=== PATIENT | male | born 1955 ===

== ENCOUNTER 2019-08-09 10:50 | Emergency (ER) | payer BC ==
[2019-08-09 12:18] VITALS: BP 108/78
--- NOTE | 2019-08-09 12:28 | UC ---
Respiratory Complaint HPI - HPI Summary HPI Summary: 64 year old male presents with complaint of productive cough, chest tightness, sinus congestion, pain and pressure, notes a feverish at night and some mid back pain x1 week. He denies chest pain, sob nor RIVERA. No n/v/d. 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 - History of Current Complaint Chief Complaint: UCGeneralIllness Stated Complaint: COUGH, CHEST CONGESTION Time Seen by Provider: 08/09/19 12:16 Hx Obtained From: Patient Onset/Duration: Lasting Days - 7 Pain Intensity: 0 Character: Cough: Productive Associated Signs And Symptoms: Positive: Chills, URI, Nasal Congestion, Sinus Discomfort. Negative: Wheezing, Hemoptysis - Allergies/Home Medications Allergies/Adverse Reactions: Allergies Allergy/AdvReac Type Severity Reaction Status Date / Time No Known Allergies Allergy Verified 09/24/18 14:02 Home Medications: Home Medications Levothyroxine TAB* [Synthroid 125 MCG TAB*] 125 mcg PO DAILY 08/09/19 [History Confirmed 08/09/19] PMH/Surg Hx/FS Hx/Imm Hx Previously Healthy: Yes Other Cardiovascular History: denies Other Respiratory History: denies - Surgical History Surgical History: Yes Surgery Procedure, Year, and Place: HERNIA REPAIR X 2 - Family History Known Family History: Negative: Cardiac Disease, Hypertension, Diabetes - Social History Occupation: Employed Full-time - construction Alcohol Use: None Substance Use Type: None Smoking Status (MU): Former Smoker When Did the Patient Quit Smoking/Using Tobacco: 1998 Review of Systems All Other Systems Reviewed And Are Negative: Yes Constitutional: Positive: Chills Skin: Negative: Rash Eyes: Positive: Negative ENT: Positive: Nasal Discharge, Sinus Congestion, Sinus Pain/Tenderness Respiratory: Positive: Cough - productive, especially at night. Negative: Shortness Of Breath Cardiovascular: Positive: Negative Gastrointestinal: Positive: Negative Genitourinary: Positive: Negative Motor: Positive: Negative Neurovascular: Positive: Negative Musculoskeletal: Positive: Negative Neurological: Positive: Negative Psychological: Positive: Negative Is Patient Immunocompromised?: No Physical Exam Triage Information Reviewed: Yes Appearance: Well-Appearing, No Pain Distress, Well-Nourished Vital Signs: Initial Vital Signs Temp 98.2 F 08/09/19 12:15 Pulse 72 08/09/19 12:15 Resp 16 12/15/19 12:15 BP 108/78 08/09/19 12:15 Pulse Ox 99 08/09/19 12:15 Vital Signs Reviewed: Yes Eye Exam: Normal ENT: Positive: Pharynx normal, Nasal congestion, TMs normal, Sinus tenderness, Uvula midline Neck: Positive: Supple, Nontender, No Lymphadenopathy Respiratory: Positive: Lungs clear, Normal breath sounds. Negative: Crackles, Rhonchi, Wheezing Cardiovascular: Positive: RRR, No Murmur, Pulses Normal, Brisk Capillary Refill Abdomen Description: Positive: Nontender, Soft Musculoskeletal Exam: Normal Neurological Exam: Normal Psychological Exam: Normal Skin Exam: Normal Diagnostics - Radiology No standard instances Radiology Interpretation Completed By: Radiologist Summary of Radiographic Findings: Operations Technician: Tiago Silver Daniel, ( [id number]) Radial Saw Operator: MEGHAN (NUANCE) Report Date: 08/09/2019 12:32: 00 Report Status: Final Start of Report Content Patient Name: NARGIS LÓPEZ Moy Medical Record#: [id number] Ordering Physician: Chapo Cramer MD Acct.#: [id number] : 1955 Age: 64 Sex: M Location: [facility] Exam Date: 08/09/191216 ADM Status: REG ER Order Information: CHEST PA LAT 2 [facility] Accession Number: [id number] CPT: 41494 HISTORY : cough, fever COMPARISONS: None relevant available at the time of dictation. VIEWS: 4: Frontal dual-energy and lateral views of the chest. FINDINGS: CARDIOMEDIASTINAL SILHOUETTE: The cardiomediastinal silhouette is normal. GERALDO: The geraldo are normal. PLEURA: The costophrenic angles are sharp. No pleural abnormalities are noted. LUNG PARENCHYMA: The lungs are clear. ABDOMEN: The upper abdomen is clear. There is no subphrenic gas. BONES AND SOFT TISSUES: No bone or soft tissue abnormalities are noted. OTHER: None. IMPRESSION: NO ACTIVE CARDIOPULMONARY DISEASE. <Electronically signed by Tiago Silver MD in OV> 08/09/191227 Dictated By: Tiago Silver MD Dictated Date/Time: 08/09/191227 Transcribed Date/Time: 08/09/191227 Copy to: CC:Mina Ayala MD; Chapo Cramer MD Imaging - [facility] Imaging - [facility] [place] [facility] [address] [place] [address] [address] [address] ph ([phone]) ph ([phone]) ph ([phone]) End of Report Content Respiratory Course/Dx - Differential Dx/Diagnosis Differential Diagnosis/HQI/PQRI: Sinusitis Provider Diagnosis: Acute bronchitis Discharge ED - Sign-Out/Discharge Documenting (check all that apply): Patient Departure All imaging exams completed and their final reports reviewed: Yes - Discharge Plan Condition: Stable Disposition: HOME Prescriptions: Azithromycin 500 mg PO DAILY 3 Days #3 tablet Patient Education Materials: Acute Bronchitis (ED) Referrals: Mina Ayala MD [Primary Care Provider] - Additional Instructions: Take Mucinex DM as needed for cough along with the antibiotics. If your symptoms persist or worsen, follow-up with your primary care physician. - Billing Disposition and Condition Condition: STABLE Disposition: Home
== END 2019-08-09 13:02 | disposition home or self-care (01) ==
LOC: UCCORT 10:50
DX: J20.9 Acute bronchitis, unspecified (principal); R09.89 Other specified symptoms and signs involving the circulatory and respiratory systems; R09.81 Nasal congestion; Z87.891 Personal history of nicotine dependence
CPT/HCPCS: 71046; 99212; G0463

== ENCOUNTER 2019-10-26 10:46 | Day surgery (SDC) | payer BC ==
[~2019-10-26 10:46] MED LIST: Buffered Lidocaine 1% SYRIN* 1 ML/SYRINGE INTRADERM ONE; Famotidine IV* 10 MG/ML 2 ML (20 mg) IV ONE; Lactated Ringers 1000 ML Bag* 1,000 ML IV SCH
[2019-10-26] MEDS ORDERED: Midazolam* 1 MG/ML 5 ML VIAL (5 MG) ONE (10:53)
[2019-10-26] MEDS ORDERED: Famotidine IV* 10 MG/ML 2 ML (20 mg) ONE (10:59)
[2019-10-26] MEDS ORDERED: ceFAZolin 2 GM in NS PREMIX(*) 2 GM/100 ML BAG IVPB ONE (10:59)
[2019-10-26] MEDS ORDERED: ROPIVACAINE 5 MG/ML 30 ML BTL (0.5%) ONE (13:30)
[2019-10-26] MEDS ORDERED: Lidocaine 1% MPF ** 5 ML VIAL ONE (13:30)
[2019-10-26] MEDS ORDERED: fentaNYL* 50 MCG/ML 2 ML VIAL (100 MCG VIAL) ONE ×2 (13:48→14:09)
[2019-10-26] MEDS ORDERED: Lidocaine 1% w EPI 1:100,000* MDV 20 ML VIAL ONE (13:50)
[2019-10-26] MEDS ORDERED: Lidocaine 2% PF * 5 ML VIAL ONE (14:39)
[2019-10-26] MEDS ORDERED: Dexamethasone IV* 4 MG/ML 1 ML (4 MG) ONE (14:39)
[2019-10-26] MEDS ORDERED: DiMENhydriNATE IV* 50 MG/ML VIAL ONE (14:39)
[2019-10-26] MEDS ORDERED: Ketorolac INJ* 30 MG/ML 1 ML VIAL ONE (14:39)
[2019-10-26] MEDS ORDERED: Propofol* 10 MG/ML 20 ML BTL ONE (14:39)
[2019-10-26] MEDS ORDERED: Ondansetron INJ* 2 MG/ML VIAL ONE (14:39)
[2019-10-26] MEDS ORDERED: Succinylcholine* 20 MG/ML 10 ML VIAL ONE (14:39)
[2019-10-26] MEDS ORDERED: DiMENhydriNATE IV* 50 MG/ML VIAL IV PUSH PRN (16:23)
[2019-10-26] MEDS ORDERED: Acetaminophen TAB* 325 MG PO PRN (16:23)
[2019-10-26] MEDS ORDERED: oxyCODONE TAB* 5 MG TAB PO PRN (16:23)
[2019-10-26] MEDS ORDERED: Naloxone* 0.4 MG/ML 1 ML VIAL IV PRN (16:23)
[2019-10-26] MEDS ORDERED: HYDROmorphone INJ1* 1 MG/ML SYRINGE ONE (16:52)
[2019-10-26] MEDS ORDERED: oxyCODONE TAB* 5 MG TAB ONE (19:26)
[2019-10-26 20:46] VITALS: BP 146/88
--- NOTE | 2019-10-27 16:40 | OP ---
DATE OF OPERATION: 10/26/19 - [facility] DATE OF : 59 SURGEON: Arie Ramos MD SUCTION DREDGE DUMPING SUPERVISOR: ARIEL Miller followed by ARIEL Lyle. An timber management assistant was needed for the entirety of the procedure to aid in retraction and passing of the instruments. ANESTHESIOLOGIST: Dr. Bond. ANESTHESIA: Peripheral nerve block plus general. PRE-OP DIAGNOSES: 1. Left shoulder impingement syndrome. 2. Left shoulder probable superior labrum anterior and posterior tear and biceps tendinitis. 3. Left shoulder acromioclavicular degenerative joint disease. POST-OP DIAGNOSES: 1. Left shoulder large midsubstance to muscular tendinous rotator cuff tear. 2. Chronic and adhesed rotator cuff tear. 3. Left shoulder superior labrum anterior and posterior tear and biceps tendinitis. 4. Left shoulder acromioclavicular degenerative joint disease. OPERATIVE PROCEDURE: 1. Left shoulder arthroscopic debridement and decompression. 2. Repair of left shoulder rotator midsubstance to musculotendinous rotator cuff tear. 3. Left shoulder subpectoral biceps tenodesis. 4. Left shoulder distal clavicle excision. 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 He injured the left shoulder about 5 years ago. It has been painful, the pain has progressed. He has had x-rays and MRI scan. The MRI scan was read by the radiologist as having deformity in the supraspinatus tendon, but no obvious tear was noted. I looked at the MRI scan as well and I did not note any significant large rotator cuff tear. We had talked about treatment options. He wanted to see if he could get out of pain. It is really starting to affect him and so we came to the operating room. He understands the risks and benefits associated with surgery including the risk of persistent pain and risk of stiffness and loss of motion as well as infection and wound problems and other potential surgical risks as well as medical risks such as cardiopulmonary risk. ESTIMATED BLOOD LOSS: 50 mL. COMPLICATIONS: None. FINDINGS: See above and below. DESCRIPTION OF PROCEDURE: Mr. Scurggs was seen in the preoperative holding area. The correct site, side, and procedures were identified. The nerve block was performed. We came back to the operating room, anesthesia was induced. He was positioned in the beech chair position and the arm was then prescrubbed and prepped and draped in the usual fashion. A time-out was performed. I began by making a standard posterior arthroscopic portal. The left shoulder was cannulated uneventfully. I introduced the camera, there was abundant synovitis. I draped over the lens of the camera. I went ahead and was able to move that out of the way and then I developed an anterior portal in my typical fashion with an outside-in technique. The cannula was placed in the anterior portal in the rotator interval. The radiofrequency ablator and other arthroscopic equipments were brought in. The debridement was performed. A feel about SLAP tear was noted. The biceps tendon was released at its tendinous insertion on the superior labrum and allowed to retract back into the bicipital groove. I did have a look at the undersurface of the rotator cuff, it did not look like it was peeled off the bone. There was a little bit of redness seen in the muscular tendinous junction. I thought it might just be some muscle fibers. I went ahead and decided to go to the bursal side of the rotator cuff. The cannula was withdrawn. The obturator was used to place the camera into the subacromial space uneventfully. Once the camera was in, I immediately noted that I could look down and see the superior aspect of the joint. I thought perhaps I might be in the joint and so I went head and withdrew the camera and then used the obturator to again pass the trocar up into the subacromial space which is typically a very easy maneuver and I put the camera in. Again, I could see the humeral head and really I could follow down into the joint. I went ahead and this time was concerned I might still be in the joint and so I withdrew the cannula, and I very carefully placed the obturator right on the tip of the acromion just underneath the acromion and then placed the camera and this time there was bursal tissue surrounding the camera. I developed a lateral portal in a standard fashion. I went ahead and brought in the radiofrequency ablator. I started cleaning out the bursal tissue and immediately apparent was the tear. I just really had a thin layer of bursa overlying it and once I removed that, it was clear, it became very obvious what had happened. He had this midsubstance tear starting anteriorly and heading down posteriorly. When I tried to bring in the arthroscopic elevator and elevate the rotator cuff tendon away from the superior labrum and the joint capsule, it was gently adhesed. It was very difficult to try to mobilize. I went ahead in this point and decided it was going to be very difficult to get the midsubstance to repair. This is very consistent with his history and this injury happening 4 to 5 years ago. In fact, it was so stuck down. I did place cannulas in the lateral and anterior portals and has introduced some arthroscopic maneuvers, but it was so stuck. It became clear that it was going to be almost impossible and so I went ahead and converted to an open portion of the procedure. I withdrew the arthroscopic equipment. I made my lateral incision longitudinal in line with my portal and I keyed it back just a little bit anteriorly proximally. I released the deltoid fascia, I released just a little bit of deltoid may be a centimeter of deltoid off of its origin on the acromion. I brought in the osteotome and excised just a few millimeters on the undersurface of the acromion. We excised all of the remaining bursa with a rongeur. The tear again was seen. I again attempted to mobilize that rotator cuff, it was not going to be mobilized. I went ahead and decided to tack that "the distal portion of the rotator cuff tendon to the superior rim of the glenoid in superior capsular reconstruction type fashion. I placed 3 BioComposite Arthrex SutureTak 3 x 14 mm on the superior aspect of the glenoid. I then used the suture lasso to pass the FiberWire sutures and free needle to perform the whipstitch with each suture and then adducted the shoulder and then tied down that portion of the rotator cuff tendon to the superior glenoid in a superior capsular reconstruction type fashion. These tied down very nicely, I got very nice tight sutures and overall I was pleased with the repair. I then irrigated out the wound. I repaired the deltoid anatomically with multiple 0 Vicryl and [id number] sutures. All the incisions were then closed with 3-0 nylon suture. I placed a little Marcaine with epinephrine around each of the incision sites. I then made a longitudinal incision just a little lateral to the axillary crease. Dissection was carried down, the deltopectoral fascia was opened up. I bluntly dissected down to the humerus. I placed a couple of Hohmann retractors on either side of the humerus. I then noted the biceps tendon in the bicipital groove. I opened up just a little bit of soft tissue overlying the tendon and retrieved the tendon. I then placed a whipstitch with the fiber loop suture, but I did not like the location of the tension, so I went ahead and removed that. Then I just used a #2 FiberWire to perform a little whipstitch in the biceps tendon. I then took the two toes of the #2 FiberWire through the EndoButton. I drilled unicortically and then placed the EndoButton in a standard fashion. It flipped and it could not be pulled out. I then whipstitched into the tendon again and tied that off. This provided an excellent onlay repair of the biceps tendon. The wound was irrigated out. The deltopectoral fascia was closed with the 0-Vicryl suture and the skin was closed with 3-0 nylon suture. Lastly, I made a 3 cm incision overlying the superior acromioclavicular joint. Open flaps were raised off the superior acromioclavicular ligaments. These were incised longitudinally. The soft tissue was freed up around the distal end of the clavicle, a couple of baby Hohmann were replaced. A sagittal saw was used to excise the distal 1 cm clavicle. I then placed bone wax on the cancellous bed. The wound was irrigated out. The superior AC ligaments were repaired with 0-Vicryl suture. The skin was closed with 3-0 nylon suture. All the wounds were then dressed with Xeroform, 4x4, ABDs, and foam tape. Cryotherapy was applied and abduction sling was applied in the operating room while the patient was still in the beech chair position. He was woken up and taken to the recovery room in stable condition. POSTOPERATIVE PLAN: He will be in the abduction sling maritime officer for likely 4 weeks. He will then progress with physical therapy. I have talked to his and daughter about the findings of the surgery and that I have guarded expectations with regards to his pain relief. Ultimately if we can achieve a return to his baseline range of motion with some pain relief, I would consider that successful for the chronic findings that were found at the time of arthroscopy. They understand this and certainly do our best to maximize the results. [id number]/[facility] #: [id number] MARIA C
== END 2019-10-26 20:10 | disposition home or self-care (01) ==
LOC: OR 10:46
PROVIDERS: ATTEND Orthopaedic Surgery Hand Surgery
DX: S46.012A Strain of muscle(s) and tendon(s) of the rotator cuff of left shoulder, initial encounter (principal); S46.111A Strain of muscle, fascia and tendon of long head of biceps, right arm, initial encounter; M19.212 Secondary osteoarthritis, left shoulder; M75.22 Bicipital tendinitis, left shoulder; E03.9 Hypothyroidism, unspecified; Z87.891 Personal history of nicotine dependence; G89.18 Other acute postprocedural pain; M19.90 Unspecified osteoarthritis, unspecified site; X58.XXXA Exposure to other specified factors, initial encounter; Y92.9 Unspecified place or not applicable
CPT/HCPCS: A9270-GY; C1713; C1776; J0330; J0690; J1100; J1170; J1240; J1885; J2250; J2405; J2704; J2795; J3010

== ENCOUNTER 2023-03-18 09:23 | Observation (INO) ==
[~2023-03-18 09:23] MED LIST changes: +Buffered Lidocaine 1% SYRIN 1 ml INTRADERM ONE; -Buffered Lidocaine 1% SYRIN* 1 ML/SYRINGE INTRADERM ONE; -Famotidine IV* 10 MG/ML 2 ML (20 mg) IV ONE; +HYDROmorphone 1 MG/1 ML SYRINGE IV PRN; -Lactated Ringers 1000 ML Bag* 1,000 ML IV SCH; +Lactated Ringers 1000 ml BAG 1,000 ML IV SCH; +Naloxone 0.4 mg VIAL 0.4 mg/ml 1 ml VIAL IV PRN; +Ondansetron 4 mg VIAL 2 MG/ML 2 ml VIAL IV PRN; +fentaNYL 100 mcg/2 ml 50 MCG/ML VIAL IV PRN
[2023-03-18] MEDS ORDERED: [UNRECOGNIZED DRUG - REMARK] IV ONE (09:24)
[2023-03-18] MEDS ORDERED: Chlorhexidine MOUTHWASH 0.12% 15 ML UDC ONE (09:46)
[2023-03-18] MEDS ORDERED: ceFAZolin 2 GM in NS PREMIX 2 GM/100 ML BAG IVPB ONE (09:46)
[2023-03-18] MEDS ORDERED: Ondansetron 4 mg VIAL 2 MG/ML 2 ml VIAL ONE (09:57)
[2023-03-18] MEDS ORDERED: Glycopyrrolate IV 0.2 MG/ML 1 ML VIAL ONE (09:57)
[2023-03-18] MEDS ORDERED: fentaNYL 100 mcg/2 ml 50 MCG/ML VIAL ONE (09:57)
[2023-03-18] MEDS ORDERED: Midazolam 2 mg/2 ml VIAL 1 mg/ml 2 ml VIAL (2 mg) ONE (09:57)
[2023-03-18] MEDS ORDERED: Rocuronium 50 mg VIAL 10 mg/ml 5 ml VIAL (50 mg) ONE ×2 (09:57→10:35)
[2023-03-18] MEDS ORDERED: Dexamethasone IV 4 MG/ML VIAL 1 ml VIAL ONE (09:57)
[2023-03-18] MEDS ORDERED: Lidocaine 2% PF 5 ML VIAL ONE (09:57)
[2023-03-18] MEDS ORDERED: Propofol 10 MG/ML 20 ML BTL ONE (09:57)
[2023-03-18 10:38] LABS: Rapid COVID-19 Molecular Undetected (Undetected)
[2023-03-18] MEDS ORDERED: Gelfoam Sponge SIZE 100 SPONGE ONE (11:01)
[2023-03-18] MEDS ORDERED: ceFAZolin 1 GM ADVAN 1 GM ADDV.VIAL IVPB ONE (11:01)
[2023-03-18] MEDS ORDERED: Lidocaine 1% w EPI 1:200,000 SDV 30 ML VIAL ONE (11:01)
[2023-03-18] MEDS ORDERED: Thrombin 5,000 UNITS 1 APPLIC KIT - topical use - TOPICAL ONE (11:01)
[2023-03-18] MEDS ORDERED: HYDROmorphone 0.5 MG/0.5 ML SYRINGE ONE (12:08)
[2023-03-18] MEDS ORDERED: Senna TAB 8.6 mg TAB PO PRN (13:12)
[2023-03-18] MEDS ORDERED: Morphine 2 MG/ML SYRINGE IV PRN (13:12)
[2023-03-18] MEDS ORDERED: Ondansetron 4 mg VIAL 2 MG/ML 2 ml VIAL IV PRN (13:12)
[2023-03-18] MEDS ORDERED: HYDROcodone/ACETAMIN 5/325 mg TAB PO PRN ×2 (13:12)
[2023-03-18] MEDS ORDERED: Calcium Carb (TUMS) 500 mg CHEW TAB PO PRN (13:12)
[2023-03-18] MEDS ORDERED: Lactated Ringers 1000 ml BAG 1,000 ML IV SCH (14:00)
[2023-03-18] MEDS ORDERED: Cholecalciferol (VIT D3) 1,000 unit TAB PO SCH (21:00)
[2023-03-19 06:50] VITALS: BP 130/80
[2023-03-19] MEDS ORDERED: Pneumococcal Vac 23-Polyvalent IM ONE (09:00)
== END 2023-03-19 10:00 | disposition home or self-care (01) ==
LOC: OR 09:23 → SSU 09:23
PROVIDERS: ADMIT Neurological Surgery; ATTEND Neurological Surgery